=== PATIENT | female | born 1935 | race Caucasian/White ===

== ENCOUNTER 2017-07-15 20:16 | Emergency (ER) | payer MEDICARE ==
[~2017-07-15] VITALS: Ht 170.2 cm; Wt 83.0 kg
[~2017-07-15 20:16] MED LIST: ACET325 PO; ACIDOPHILUS LA1 EACH PO; ALPR.25 PO; AMLO5; ASPI81EC; ATOR20 PO; ATRIPLA; ATRIPLA PO; B Complete1 EACH PO; BIOTIN; BUME1 PO; CALCAVITD; CALCIT950 PO; CHOL10002 PO; CLON.5; Co Q-1010 MG PO; DESCOVY 200-251 EACH; DIPATR PO; FISH1000 PR; FLUSAL1005; FLUSAL1005 IH; Flagyl500 MG PO; GABA300 PO; GABA600 PO; HYDR1TAB94 PO; LEVSOD112; LEVSOD125 PO; LISI20; LISI20 PO; MAGOXI400; METF500; METO25ER PO; METO50ER; METR500 PO; MILK THISTLE1 GM PO; Micro-K10 MEQ PO; Norco 5-325 Ta1 EACH PO; OCUVITE EYE +1 EACH; OMEP20ER; OXYB5; OXYB5 PO; Omeprazole20 M1 PO; POTCHL10ER; PSYL5.85P PO; Percocet 5-3251 EACH PO; Prinivil10 MG PO; SPIR50 PO; TIVICAY50 MG; TRIHYD253A; TRIHYD253A PO; TRIHYD253B; UBID10 PO; Zofran Odt4 MG SL
[2017-07-15] MEDS ORDERED: LISI5 PO (20:38)
[2017-07-15] MEDS ORDERED: VANC125 PO (20:39)
[2017-07-15] MEDS ORDERED: ATRIPLA PO (20:39)
[2017-07-15 21:38] LABS: BASOPHILS ABSOLUTE AUTO 0.04 K/mm3 (0.00-0.23); BASOPHILS PERCENT AUTO 1 % (0-2); EOSINOPHILS ABSOLUTE AUTO 0.05 K/mm3 (0.00-0.68); EOSINOPHILS PERCENT AUTO 1 % (0-6); Hematocrit 40.7 % (33.0-51.0); Hemoglobin 13.8 g/dL (11.5-16.0); IMMATURE GRAN ABSOLUTE AUTO 0.01 K/mm3 (0.00-0.10); IMMATURE GRAN PERCENT AUTO 0 % (0-1); LYMPHOCYTES ABSOLUTE AUTO 0.64 K/mm3 (0.84-5.20); LYMPHOCYTES PERCENT AUTO 9 % (21-46); MONOCYTES ABSOLUTE AUTO 0.68 K/mm3 (0.16-1.47); MONOCYTES PERCENT AUTO 10 % (4-13); Mean Corpuscular HGB 34.8 pg (26.0-34.0); Mean Corpuscular HGB Conc 33.9 g/dL (31.5-36.5); Mean Corpuscular Volume 103 fL (80-100); Mean Platelet Volume 11.3 fL (9.1-12.4); NEUTROPHILS ABSOLUTE AUTO 5.66 K/mm3 (1.96-9.15); NEUTROPHILS PERCENT AUTO 80 % (41-73); Platelet Count 76 K/mm3 (150-400); RDW Coefficient Variation 12.9 % (11.7-14.2); RDW Standard Deviation 49.1 fL (35.1-46.3); Red Blood Cell Count 3.97 M/mm3 (3.80-5.20); White Blood Cell Count 7.08 K/mm3 (4.00-11.30)
[2017-07-15 21:49] LABS: Alanine Aminotransfer (ALT/SGP 58 U/L (12-78); Albumin, Blood 3.1 g/dL (3.4-5.0); Albumin/Globulin Ratio 0.8 (0.8-1.8); Alk Phos 164 U/L (50-136); Anion Gap 8 mmol/L (6-16); Aspartate Aminotrans (AST/SGOT 72 U/L (12-37); Bilirubin, Total 0.9 mg/dL (0.1-1.0); Blood Urea Nitrogen 23 mg/dL (8-24); Bun/Creatinine Ratio 33.3 (12.0-20.0); CO2, Blood 22 mmol/L (21-32); Calcium, Blood 9.2 mg/dL (8.5-10.1); Chloride, Blood 112 mmol/L (98-108); Creatinine, Blood 0.69 mg/dL (0.40-1.00); Globulin, Blood 4.1 g/dL (2.2-4.0); Glomerular Filtration Rate >60 (60-); Glucose, Blood 165 mg/dL (70-99); Potassium, Blood 4.2 mmol/L (3.5-5.5); Sodium, Blood 142 mmol/L (136-145); Total Protein, Blood 7.2 g/dL (6.4-8.2)
[2017-07-15 22:53] LABS: Adenovirus F 40/41 Not Detected (NOT DETECT); Astrovirus Not Detected (NOT DETECT); Campylobacter Sp Not Detected (NOT DETECT); Cryptosporidium Not Detected (NOT DETECT); Cyclospora Cayetanensis Not Detected (NOT DETECT); E. Coli O157 Not Detected (NOT DETECT); Entamoeba Histolytica Not Detected (NOT DETECT); Enteroaggregative E. coli-EAEC Not Detected (NOT DETECT); Enteropathogenic E. coli-EPEC Not Detected (NOT DETECT); Enterotoxigenic E. coli-ETEC Not Detected (NOT DETECT); Giardia Lamblia Not Detected (NOT DETECT); Norovirus GI/GII Not Detected (NOT DETECT); Plesiomonas Shigelloides Not Detected (NOT DETECT); Rotavirus A Not Detected (NOT DETECT); Salmonella Sp Not Detected (NOT DETECT); Sapovirus Not Detected (NOT DETECT); Shiga Toxin-prod E. coli-STEC Not Detected (NOT DETECT); Shigella/Enteroin E. coli-EIEC Not Detected (NOT DETECT); Vibrio Cholerae Not Detected (NOT DETECT); Vibrio Sp Not Detected (NOT DETECT); Yersinia Enterocolitica Not Detected (NOT DETECT)
[2017-07-15] MEDS ORDERED: Vancocin HCl250 MG PO (23:01)
[2017-07-15] MEDS ORDERED: Flagyl500 MG PO (23:01)
[2018-04-08] MEDS ORDERED: Percocet 5-3251 EACH PO (15:25)
[2018-04-08] MEDS ORDERED: SPIR50 PO (20:00)
[2018-04-08] MEDS ORDERED: SACC250C PO (20:01)
[2018-04-08] MEDS ORDERED: ALPR.25 PO (20:03)
[2018-04-13] MEDS ORDERED: ALPR.25 (14:12)
[2018-04-13] MEDS ORDERED: ACET325 (14:15)
[2018-04-13] MEDS ORDERED: ARTIFICIAL TEAR30 ML (14:18)
[2018-04-13] MEDS ORDERED: LIDO700A20 TOP (14:19)
[2018-04-13] MEDS ORDERED: Metamucil Smooth1 EA (14:21)
[2018-04-13] MEDS ORDERED: ROXICODONE5 MG PO (14:23)
[2018-04-13] MEDS ORDERED: ASPI81CH (14:24)
[2018-04-13] MEDS ORDERED: NAPR500 PO (14:25)
[2018-04-13] MEDS ORDERED: ASPI81CH PO (14:31)
== END 2017-07-16 01:14 | disposition home or self-care (01) ==
LOC: ER 20:16
PROVIDERS: Emergency Medicine
DX: R19.7 Diarrhea, unspecified (principal); Z88.8 Allergy status to other drugs, medicaments and biological substances; Z91.012 Allergy to eggs; Z91.011 Allergy to milk products; Z79.899 Other long term (current) drug therapy; Z79.2 Long term (current) use of antibiotics; I10 Essential (primary) hypertension
CPT/HCPCS: 80053; 81001; 83690; 85025; 87507; 96365; 99283; J3370; J7050

== ENCOUNTER → 2017-10-23 | Outpatient (CLI) | payer MEDICARE ==
[~2017-10-23] MED LIST changes: +LISI5 PO; +VANC125 PO; +Vancocin HCl250 MG PO
== END ==
LOC: LAB 18:33 → LAB SHORT 18:33
DX: H10.232 Serous conjunctivitis, except viral, left eye (principal)
CPT/HCPCS: 87070; 87186; 87205

== ENCOUNTER 2017-11-22 12:01 | Emergency (ER) | payer MEDICARE ==
[~2017-11-22] VITALS: Ht 167.6 cm; Wt 88.0 kg
== END 2017-11-22 14:29 | disposition home or self-care (01) ==
LOC: ER 12:01
DX: S49.92XA Unspecified injury of left shoulder and upper arm, initial encounter (principal); S20.219A Contusion of unspecified front wall of thorax, initial encounter; M54.2 Cervicalgia; W18.30XA Fall on same level, unspecified, initial encounter; Z79.899 Other long term (current) drug therapy; Z91.011 Allergy to milk products; Z91.012 Allergy to eggs; Z88.8 Allergy status to other drugs, medicaments and biological substances; Z79.2 Long term (current) use of antibiotics; I10 Essential (primary) hypertension; B20 Human immunodeficiency virus [HIV] disease; E03.9 Hypothyroidism, unspecified; K21.9 Gastro-esophageal reflux disease without esophagitis
CPT/HCPCS: 71046; 72125; 73030; 99284

== ENCOUNTER 2017-11-24 18:11 | Emergency (ER) | payer MEDICARE ==
[~2017-11-24] VITALS: Ht 165.1 cm; Wt 83.0 kg
[2017-11-24] MEDS ORDERED: Dazidox10 MG PO (19:54)
== END 2017-11-24 21:08 | disposition home or self-care (01) ==
LOC: ER 18:11
DX: S39.011A Strain of muscle, fascia and tendon of abdomen, initial encounter (principal); I10 Essential (primary) hypertension; Z91.011 Allergy to milk products; Z88.8 Allergy status to other drugs, medicaments and biological substances; Z91.012 Allergy to eggs; Z79.899 Other long term (current) drug therapy; X50.9XXA Other and unspecified overexertion or strenuous movements or postures, initial encounter
CPT/HCPCS: 99283

== ENCOUNTER → 2018-12-17 | Outpatient (CLI) | payer MEDICARE ==
[~2018-12-17] MED LIST changes: +ACET325; +ALPR.25; +ARTIFICIAL TEAR30 ML; +ASPI81CH; +ASPI81CH PO; +Dazidox10 MG PO; +ELIQUIS5 MG; +LIDO700A20 TOP; +Metamucil Smooth1 EA; +NAPR500 PO; +ROXICODONE5 MG PO; +SACC250C PO
[2018-12-17 11:37] LABS: BASOPHILS ABSOLUTE AUTO 0.04 K/mm3 (0.00-0.23); BASOPHILS PERCENT AUTO 1 % (0-2); EOSINOPHILS PERCENT AUTO 5 % (0-6); Hematocrit 39.6 % (33.0-51.0); Hemoglobin 13.5 g/dL (11.5-16.0); IMMATURE GRAN ABSOLUTE AUTO 0.01 K/mm3 (0.00-0.10); IMMATURE GRAN PERCENT AUTO 0 % (0-1); LYMPHOCYTES ABSOLUTE AUTO 0.76 K/mm3 (0.84-5.20); LYMPHOCYTES PERCENT AUTO 17 % (21-46); MONOCYTES ABSOLUTE AUTO 0.64 K/mm3 (0.16-1.47); MONOCYTES PERCENT AUTO 15 % (4-13); Mean Corpuscular HGB 34.6 pg (26.0-34.0); Mean Corpuscular HGB Conc 34.1 g/dL (31.5-36.5); Mean Corpuscular Volume 102 fL (80-100); NEUTROPHILS ABSOLUTE AUTO 2.71 K/mm3 (1.96-9.15); NEUTROPHILS PERCENT AUTO 62 % (41-73); RDW Coefficient Variation 14.5 % (11.7-14.2); RDW Standard Deviation 53.9 fL (35.1-46.3); White Blood Cell Count 4.36 K/mm3 (4.00-11.30)
[2018-12-17 11:45] LABS: Mean Platelet Volume 11.4 fL (9.1-12.4); Platelet Count 76 K/mm3 (150-400)
[2018-12-17 12:25] LABS: Anion Gap 12 mmol/L (6-16); Blood Urea Nitrogen 18 mg/dL (8-24); Bun/Creatinine Ratio 23.4 (12.0-20.0); CO2, Blood 19 mmol/L (21-32); Calcium, Blood 9.7 mg/dL (8.5-10.1); Chloride, Blood 109 mmol/L (98-108); Creatinine, Blood 0.77 mg/dL (0.40-1.00); Glomerular Filtration Rate >60 (60-); Glucose, Blood 139 mg/dL (70-99); Potassium, Blood 3.6 mmol/L (3.5-5.5); Sodium, Blood 140 mmol/L (136-145); Troponin I <0.017 ng/mL (0.000-0.040)
== END | disposition home or self-care (01) ==
LOC: LAB EV 11:33 → LAB SHORT 11:33
PROVIDERS: Family Medicine
DX: N39.0 Urinary tract infection, site not specified (principal); R07.89 Other chest pain
CPT/HCPCS: 80048; 84484; 85025; 87077; 87086; 87186

== ENCOUNTER → 2018-12-25 | Outpatient (CLI) | payer MEDICARE | END | disposition home or self-care (01) | LOC: LAB SHORT 09:36 → LAB 09:36 → LAB FUT 12-25 19:00 | DX: R19.7 Diarrhea, unspecified (principal) | CPT/HCPCS: 87493 ==

== ENCOUNTER 2019-03-28 08:12 | Day surgery (SDC) | payer MEDICARE ==
[~2019-03-28] VITALS: Ht 167.6 cm; Wt 80.3 kg
== END 2019-03-28 10:27 | disposition home or self-care (01) ==
LOC: ORSCSDS 08:12
PROVIDERS: Internal Medicine Gastroenterology
PROC: 0DBE8ZX Excision of Large Intestine, Via Natural or Artificial Opening Endoscopic, Diagnostic (ICD-10-PCS; principal; 2019-03-28 09:30)
PROC: 0DBK8ZX Excision of Ascending Colon, Via Natural or Artificial Opening Endoscopic, Diagnostic (ICD-10-PCS; principal; 2019-03-28 09:30)
DX: R19.4 Change in bowel habit (principal); D12.2 Benign neoplasm of ascending colon; K57.30 Diverticulosis of large intestine without perforation or abscess without bleeding; K64.8 Other hemorrhoids; B20 Human immunodeficiency virus [HIV] disease; I10 Essential (primary) hypertension; K74.60 Unspecified cirrhosis of liver; E78.5 Hyperlipidemia, unspecified; E03.9 Hypothyroidism, unspecified; E11.9 Type 2 diabetes mellitus without complications; F41.8 Other specified anxiety disorders; Z80.0 Family history of malignant neoplasm of digestive organs; I48.91 Unspecified atrial fibrillation; K21.9 Gastro-esophageal reflux disease without esophagitis; Z79.01 Long term (current) use of anticoagulants; Z79.899 Other long term (current) drug therapy
CPT/HCPCS: 82947; 88305; J2704; J7120

== ENCOUNTER → 2020-03-16 | Outpatient (CLI) | payer MEDICARE ==
[2020-03-16 17:31] LABS: Creatinine, Urine Random 25.1 mg/dL (27.00-270.00); Protein, Urine Random 8.4 mg/dL (0.0-11.9)
[2020-03-16 17:43] LABS: Bilirubin, Urine Neg (Neg); Blood, Urine Neg (Neg); Glucose Qualitative, Urine Neg (Neg); Ketones, Urine Neg (Neg); Leukocyte Esterase, Urine Neg (Neg); Nitrite, Urine Neg (Neg); Protein, Urine Neg (Neg); Urobilinogen, Urine NORM (Normal)
[2020-03-16 18:03] LABS: Appearance, Urine Clear (Clear); Color, Urine Yellow (P-Yellow)
== END | disposition home or self-care (01) ==
LOC: LAB 15:24 → LAB SHORT 15:24
PROVIDERS: Internal Medicine
DX: N17.9 Acute kidney failure, unspecified (principal); N28.89 Other specified disorders of kidney and ureter
CPT/HCPCS: 81003; 82570; 84156

== ENCOUNTER 2020-06-09 13:04 | Emergency (ER) | payer MEDICARE ==
[~2020-06-09] VITALS: Ht 167.6 cm; Wt 81.7 kg
[2020-06-09 13:35] LABS: BASOPHILS ABSOLUTE AUTO 0.05 K/mm3 (0.00-0.23); BASOPHILS PERCENT AUTO 1 % (0-2); EOSINOPHILS ABSOLUTE AUTO 0.22 K/mm3 (0.00-0.68); EOSINOPHILS PERCENT AUTO 5 % (0-6); Hematocrit 42.2 % (33.0-51.0); Hemoglobin 13.7 g/dL (11.5-16.0); IMMATURE GRAN ABSOLUTE AUTO 0.02 K/mm3 (0.00-0.10); IMMATURE GRAN PERCENT AUTO 0 % (0-1); LYMPHOCYTES ABSOLUTE AUTO 0.91 K/mm3 (0.84-5.20); LYMPHOCYTES PERCENT AUTO 19 % (21-46); MONOCYTES ABSOLUTE AUTO 0.83 K/mm3 (0.16-1.47); MONOCYTES PERCENT AUTO 17 % (4-13); Mean Corpuscular HGB 34.7 pg (26.0-34.0); Mean Corpuscular HGB Conc 32.5 g/dL (31.5-36.5); Mean Corpuscular Volume 107 fL (80-100); NEUTROPHILS ABSOLUTE AUTO 2.89 K/mm3 (1.96-9.15); NEUTROPHILS PERCENT AUTO 59 % (41-73); Platelet Count 84 K/mm3 (150-400); RDW Coefficient Variation 14.6 % (11.7-14.2); RDW Standard Deviation 57.1 fL (35.1-46.3); Red Blood Cell Count 3.95 M/mm3 (3.80-5.20); White Blood Cell Count 4.92 K/mm3 (4.00-11.30)
[2020-06-09 13:59] LABS: Alanine Aminotransfer (ALT/SGP 52 U/L (12-78); Albumin, Blood 3.1 g/dL (3.4-5.0); Albumin/Globulin Ratio 0.8 (0.8-1.8); Alk Phos 170 U/L (50-136); Anion Gap 3 mmol/L (6-16); Aspartate Aminotrans (AST/SGOT 60 U/L (12-37); Bilirubin, Total 0.8 mg/dL (0.1-1.0); Blood Urea Nitrogen 19 mg/dL (8-24); Bun/Creatinine Ratio 20.4 (12.0-20.0); CO2, Blood 27 mmol/L (21-32); Calcium, Blood 9.3 mg/dL (8.5-10.1); Chloride, Blood 113 mmol/L (98-108); Creatinine, Blood 0.93 mg/dL (0.40-1.00); Globulin, Blood 3.9 g/dL (2.2-4.0); Glomerular Filtration Rate >60 (60-); Glucose, Blood 119 mg/dL (70-99); Potassium, Blood 4.3 mmol/L (3.5-5.5); Sodium, Blood 143 mmol/L (136-145); Troponin I <0.015 ng/mL (0.000-0.040)
[2020-06-09 14:34] LABS: Influenza A, PCR Negative (NEGATIVE); Influenza B, PCR Negative (NEGATIVE); Resp Syncytial Virus, PCR Negative (NEGATIVE); SARS-Cov-2 (COVID-19) PCR, MMC Negative (NEGATIVE)
== END 2020-06-09 16:30 | disposition home or self-care (01) ==
LOC: ER 13:04
PROVIDERS: Emergency Medicine
DX: E87.70 Fluid overload, unspecified (principal); I10 Essential (primary) hypertension; K74.60 Unspecified cirrhosis of liver; Z20.828 Contact with and (suspected) exposure to other viral communicable diseases; Z79.01 Long term (current) use of anticoagulants; Z79.899 Other long term (current) drug therapy; Z91.011 Allergy to milk products; Z88.8 Allergy status to other drugs, medicaments and biological substances; Z91.012 Allergy to eggs; Z21 Asymptomatic human immunodeficiency virus [HIV] infection status; Z95.0 Presence of cardiac pacemaker
CPT/HCPCS: 0241U; 71045; 80053; 83880; 84484; 85025; 93005; 93010; 96374; 99285-25; J1940

== ENCOUNTER 2021-01-12 04:12 | Day surgery (SDC) | payer MEDICARE | END 2021-01-12 22:52 | disposition home or self-care (01) | LOC: WOUND 04:12 | DX: L97.212 Non-pressure chronic ulcer of right calf with fat layer exposed (principal); S31.000S Unspecified open wound of lower back and pelvis without penetration into retroperitoneum, sequela; X58.XXXS Exposure to other specified factors, sequela; K74.69 Other cirrhosis of liver | CPT/HCPCS: A9270; G0463 ==

== ENCOUNTER 2021-01-19 02:45 | Day surgery (SDC) | payer MEDICARE | END 2021-01-19 23:34 | disposition home or self-care (01) | LOC: WOUND 02:45 | DX: L97.212 Non-pressure chronic ulcer of right calf with fat layer exposed (principal); X58.XXXS Exposure to other specified factors, sequela; S31.000S Unspecified open wound of lower back and pelvis without penetration into retroperitoneum, sequela; K74.69 Other cirrhosis of liver; L03.115 Cellulitis of right lower limb | CPT/HCPCS: 87070; 87205; A9270 ==

== ENCOUNTER 2021-01-26 02:18 | Day surgery (SDC) | payer MEDICARE | END 2021-01-26 23:00 | disposition home or self-care (01) | LOC: WOUND 02:18 | DX: L97.212 Non-pressure chronic ulcer of right calf with fat layer exposed (principal); S31.000S Unspecified open wound of lower back and pelvis without penetration into retroperitoneum, sequela; X58.XXXS Exposure to other specified factors, sequela; K74.69 Other cirrhosis of liver; L03.115 Cellulitis of right lower limb | CPT/HCPCS: A9270 ==

== ENCOUNTER 2021-01-28 04:04 | Day surgery (SDC) | payer MEDICARE | END 2021-01-28 23:36 | disposition home or self-care (01) | LOC: WOUND 04:04 | DX: L97.212 Non-pressure chronic ulcer of right calf with fat layer exposed (principal); S31.000S Unspecified open wound of lower back and pelvis without penetration into retroperitoneum, sequela; K74.69 Other cirrhosis of liver; L03.115 Cellulitis of right lower limb ==

== ENCOUNTER 2021-02-02 00:47 | Day surgery (SDC) | payer MEDICARE | END 2021-02-02 22:55 | disposition home or self-care (01) | LOC: WOUND 00:47 | DX: L97.812 Non-pressure chronic ulcer of other part of right lower leg with fat layer exposed (principal); K74.69 Other cirrhosis of liver; L03.115 Cellulitis of right lower limb; S31.000S Unspecified open wound of lower back and pelvis without penetration into retroperitoneum, sequela; X58.XXXS Exposure to other specified factors, sequela | CPT/HCPCS: A9270 ==

== ENCOUNTER 2021-02-08 02:58 | Day surgery (SDC) | payer MEDICARE | END 2021-02-08 23:20 | disposition home or self-care (01) | LOC: WOUND 02:58 | DX: L97.812 Non-pressure chronic ulcer of other part of right lower leg with fat layer exposed (principal); K74.69 Other cirrhosis of liver; L03.115 Cellulitis of right lower limb; S31.000S Unspecified open wound of lower back and pelvis without penetration into retroperitoneum, sequela | CPT/HCPCS: A9270 ==

== ENCOUNTER 2021-02-16 02:49 | Day surgery (SDC) | payer MEDICARE | END 2021-02-16 23:01 | disposition home or self-care (01) | LOC: WOUND 02:49 | DX: L97.812 Non-pressure chronic ulcer of other part of right lower leg with fat layer exposed (principal); K74.69 Other cirrhosis of liver; Z88.8 Allergy status to other drugs, medicaments and biological substances | CPT/HCPCS: A9270; G0463 ==

== ENCOUNTER 2021-02-23 02:14 | Day surgery (SDC) | payer MEDICARE | END 2021-02-23 22:51 | disposition home or self-care (01) | LOC: WOUND 02:14 | DX: L97.212 Non-pressure chronic ulcer of right calf with fat layer exposed (principal); K74.69 Other cirrhosis of liver | CPT/HCPCS: G0463 ==

== ENCOUNTER 2021-03-02 03:59 | Day surgery (SDC) | payer MEDICARE | END 2021-03-02 23:46 | disposition home or self-care (01) | LOC: WOUND 03:59 | DX: L97.212 Non-pressure chronic ulcer of right calf with fat layer exposed (principal); K74.69 Other cirrhosis of liver | CPT/HCPCS: A9270; G0463 ==

== ENCOUNTER → 2021-04-27 | Outpatient (CLI) | payer MEDICARE ==
[2021-04-29 18:06] LABS: HIV-1 RNA BY PCR <20 (.)
== END | disposition home or self-care (01) ==
LOC: LAB SHORT 15:00
PROVIDERS: Internal Medicine Infectious Disease
DX: B20 Human immunodeficiency virus [HIV] disease (principal)
CPT/HCPCS: 87536

== ENCOUNTER → 2022-07-29 | Outpatient (CLI) | payer MEDICARE ==
[~2022-07-29] MED LIST changes: +ATORVASTATIN CA20 MG PO; +CEPH500 PO; +ELIQUIS5 M3 PO; +LOMOTIL 2.5-0.1 EACH PO
== END | disposition home or self-care (01) ==
LOC: LAB SHORT 18:10
DX: E03.9 Hypothyroidism, unspecified (principal)
CPT/HCPCS: 84443

== ENCOUNTER 2023-01-03 09:24 | Emergency (ER) | payer MEDICARE ==
[~2023-01-03] VITALS: Ht 167.6 cm; Wt 80.3 kg
[2023-01-03] MEDS ORDERED: EUTHYROX50 MC1 PO (10:30)
[2023-01-03] MEDS ORDERED: ATRIPLA TABLET1 EACH PO (10:31)
[2023-01-03 10:37] LABS: BASOPHILS ABSOLUTE AUTO 0.04 K/mm3 (0.00-0.23); BASOPHILS PERCENT AUTO 1 % (0-2); EOSINOPHILS ABSOLUTE AUTO 0.16 K/mm3 (0.00-0.68); EOSINOPHILS PERCENT AUTO 5 % (0-6); Hematocrit 40.7 % (33.0-51.0); IMMATURE GRAN ABSOLUTE AUTO 0.01 K/mm3 (0.00-0.10); IMMATURE GRAN PERCENT AUTO 0 % (0-1); LYMPHOCYTES PERCENT AUTO 20 % (21-46); MONOCYTES ABSOLUTE AUTO 0.69 K/mm3 (0.16-1.47); MONOCYTES PERCENT AUTO 19 % (4-13); Mean Corpuscular HGB 36.4 pg (26.0-34.0); Mean Corpuscular HGB Conc 34.4 g/dL (31.5-36.5); Mean Corpuscular Volume 106 fL (80-100); Mean Platelet Volume 10.8 fL (9.1-12.4); NEUTROPHILS ABSOLUTE AUTO 1.96 K/mm3 (1.96-9.15); NEUTROPHILS PERCENT AUTO 55 % (41-73); Platelet Count 83 K/mm3 (150-400); RDW Coefficient Variation 14.2 % (11.7-14.2); RDW Standard Deviation 55.6 fL (35.1-46.3); Red Blood Cell Count 3.85 M/mm3 (3.80-5.20); White Blood Cell Count 3.56 K/mm3 (4.00-11.30)
[2023-01-03 10:54] LABS: Albumin/Globulin Ratio 0.8 (0.8-1.8); Bilirubin, Total 1.2 mg/dL (0.1-1.0); Bun/Creatinine Ratio 16.9 (12.0-20.0); Calcium, Blood 9.9 mg/dL (8.5-10.1); Creatinine, Blood 0.89 mg/dL (0.40-1.00); Globulin, Blood 3.6 g/dL (2.2-4.0); Potassium, Blood 4.3 mmol/L (3.5-5.5); Total Protein, Blood 6.6 g/dL (6.4-8.2)
[2023-01-03 11:30] VITALS: BP 122/60
[2023-01-03] MEDS ORDERED: Mupirocin22 GM TOP (11:53)
== END 2023-01-03 12:03 | disposition home or self-care (01) ==
LOC: ER 09:24
PROVIDERS: Emergency Medicine
DX: L97.829 Non-pressure chronic ulcer of other part of left lower leg with unspecified severity (principal); L97.819 Non-pressure chronic ulcer of other part of right lower leg with unspecified severity; I10 Essential (primary) hypertension; Z91.011 Allergy to milk products; Z88.8 Allergy status to other drugs, medicaments and biological substances; Z91.012 Allergy to eggs; Z79.899 Other long term (current) drug therapy
CPT/HCPCS: 80053; 85025; 93971; 99283-25

== ENCOUNTER 2023-02-15 12:59 | Emergency (ER) | payer OTHER, MEDICARE ==
[~2023-02-15] VITALS: Ht 167.6 cm; Wt 78.9 kg
[~2023-02-15 12:59] MED LIST changes: +ATRIPLA TABLET1 EACH PO; +EUTHYROX50 MC1 PO; +Mupirocin22 GM TOP
[2023-02-15] MEDS ORDERED: ATRIPLA TABLET1 EACH PO (13:13)
[2023-02-15] MEDS ORDERED: HYDR1TAB94 PO ×2 (15:44→17:03)
[2023-02-15 17:04] VITALS: BP 109/60
== END 2023-02-15 17:14 | disposition home or self-care (01) ==
LOC: ER 12:59
DX: S89.92XA Unspecified injury of left lower leg, initial encounter (principal); W01.0XXA Fall on same level from slipping, tripping and stumbling without subsequent striking against object, initial encounter; I10 Essential (primary) hypertension; E11.9 Type 2 diabetes mellitus without complications; Z91.012 Allergy to eggs; Z91.02 Food additives allergy status; Z91.011 Allergy to milk products; Z79.899 Other long term (current) drug therapy; Z79.01 Long term (current) use of anticoagulants; Z21 Asymptomatic human immunodeficiency virus [HIV] infection status
CPT/HCPCS: 72170; 73562-LT; 99283-25; A9270

== ENCOUNTER 2023-07-24 20:47 | Emergency (ER) | payer MEDICARE ==
[~2023-07-24] VITALS: Ht 167.6 cm; Wt 78.5 kg
[2023-07-24 21:13] LABS: BASOPHILS ABSOLUTE AUTO 0.05 K/mm3 (0.00-0.23); BASOPHILS PERCENT AUTO 1 % (0-2); EOSINOPHILS ABSOLUTE AUTO 0.23 K/mm3 (0.00-0.68); EOSINOPHILS PERCENT AUTO 6 % (0-6); Hematocrit 40.6 % (33.0-51.0); Hemoglobin 13.6 g/dL (11.5-16.0); IMMATURE GRAN ABSOLUTE AUTO 0.01 K/mm3 (0.00-0.10); IMMATURE GRAN PERCENT AUTO 0 % (0-1); LYMPHOCYTES ABSOLUTE AUTO 1.17 K/mm3 (0.84-5.20); LYMPHOCYTES PERCENT AUTO 30 % (21-46); MONOCYTES ABSOLUTE AUTO 0.82 K/mm3 (0.16-1.47); MONOCYTES PERCENT AUTO 21 % (4-13); Mean Corpuscular HGB 36.7 pg (26.0-34.0); Mean Corpuscular HGB Conc 33.5 g/dL (31.5-36.5); Mean Corpuscular Volume 109 fL (80-100); Mean Platelet Volume 11.2 fL (9.1-12.4); NEUTROPHILS ABSOLUTE AUTO 1.65 K/mm3 (1.96-9.15); NEUTROPHILS PERCENT AUTO 42 % (41-73); Platelet Count 82 K/mm3 (150-400); RDW Coefficient Variation 14.6 % (11.7-14.2); RDW Standard Deviation 59.5 fL (35.1-46.3); Red Blood Cell Count 3.71 M/mm3 (3.80-5.20); White Blood Cell Count 3.93 K/mm3 (4.00-11.30)
[2023-07-24 22:00] VITALS: BP 117/74
== END 2023-07-24 22:15 | disposition home or self-care (01) ==
LOC: ER 20:47
PROVIDERS: Emergency Medicine
DX: K62.5 Hemorrhage of anus and rectum (principal); I10 Essential (primary) hypertension; E11.9 Type 2 diabetes mellitus without complications; Z79.01 Long term (current) use of anticoagulants; Z79.899 Other long term (current) drug therapy; Z95.0 Presence of cardiac pacemaker; Z88.8 Allergy status to other drugs, medicaments and biological substances; Z91.012 Allergy to eggs; Z91.02 Food additives allergy status; Z91.011 Allergy to milk products; Z21 Asymptomatic human immunodeficiency virus [HIV] infection status
CPT/HCPCS: 85025; 99283

== ENCOUNTER 2023-08-05 15:45 | Emergency (ER) | payer MEDICARE ==
[~2023-08-05] VITALS: Ht 165.1 cm; Wt 77.1 kg
[2023-08-05 16:15] LABS: BASOPHILS ABSOLUTE AUTO 0.04 K/mm3 (0.00-0.23); BASOPHILS PERCENT AUTO 1 % (0-2); EOSINOPHILS ABSOLUTE AUTO 0.01 K/mm3 (0.00-0.68); EOSINOPHILS PERCENT AUTO 0 % (0-6); Hematocrit 39.9 % (33.0-51.0); Hemoglobin 13.3 g/dL (11.5-16.0); IMMATURE GRAN ABSOLUTE AUTO 0.06 K/mm3 (0.00-0.10); IMMATURE GRAN PERCENT AUTO 1 % (0-1); LYMPHOCYTES ABSOLUTE AUTO 0.35 K/mm3 (0.84-5.20); LYMPHOCYTES PERCENT AUTO 5 % (21-46); MONOCYTES ABSOLUTE AUTO 0.86 K/mm3 (0.16-1.47); MONOCYTES PERCENT AUTO 12 % (4-13); Mean Corpuscular HGB 35.7 pg (26.0-34.0); Mean Corpuscular HGB Conc 33.3 g/dL (31.5-36.5); Mean Corpuscular Volume 107 fL (80-100); Mean Platelet Volume 11.2 fL (9.1-12.4); NEUTROPHILS PERCENT AUTO 82 % (41-73); Platelet Count 72 K/mm3 (150-400); RDW Coefficient Variation 14.3 % (11.7-14.2); RDW Standard Deviation 56.9 fL (35.1-46.3); Red Blood Cell Count 3.73 M/mm3 (3.80-5.20); White Blood Cell Count 7.22 K/mm3 (4.00-11.30)
[2023-08-05 16:37] LABS: Albumin, Blood 2.8 g/dL (3.4-5.0); Albumin/Globulin Ratio 0.6 (0.8-1.8); Bilirubin, Total 1.8 mg/dL (0.1-1.0); Bun/Creatinine Ratio 20.1 (12.0-20.0); Calcium, Blood 9.7 mg/dL (8.5-10.1); Creatinine, Blood 0.84 mg/dL (0.40-1.00); Globulin, Blood 4.4 g/dL (2.2-4.0); Potassium, Blood 4.8 mmol/L (3.5-5.5); Total Protein, Blood 7.2 g/dL (6.4-8.2)
[2023-08-05 16:49] LABS: Influenza A, PCR NEGATIVE (NEGATIVE); Influenza B, PCR NEGATIVE (NEGATIVE); Resp Syncytial Virus, PCR NEGATIVE (NEGATIVE); SARS-Cov-2 (COVID-19) PCR, MMC NEGATIVE (NEGATIVE)
[2023-08-05 19:00] VITALS: BP 93/50
== END 2023-08-05 19:18 | disposition home or self-care (01) ==
LOC: ER 15:45
PROVIDERS: Emergency Medicine
DX: F41.9 Anxiety disorder, unspecified (principal); R09.02 Hypoxemia; I10 Essential (primary) hypertension; Z95.0 Presence of cardiac pacemaker; E11.9 Type 2 diabetes mellitus without complications; Z79.01 Long term (current) use of anticoagulants; Z79.899 Other long term (current) drug therapy; Z88.8 Allergy status to other drugs, medicaments and biological substances; Z91.012 Allergy to eggs; Z91.011 Allergy to milk products
CPT/HCPCS: 0241U; 71045; 80053; 83880; 84484; 85025; 93005; 93010; 99285-25